=== PATIENT | female | born 1945 | race Hispanic/Latino ===

== ENCOUNTER 2018-07-02 10:57 | Observation (INO) | payer OTHER ==
[~2018-07-02] VITALS: Ht 154.9 cm; Wt 68.6 kg
[2018-07-02] MEDS ORDERED: NITROGLYCERIN 1GM/1 INCH PACKET TD ONE ×2 (11:15→11:56)
[2018-07-02 11:37] LABS: BASOPHILS % (AUTO) 0.7 % (0.0-5.0); EOSINOPHILS % (AUTO) 1.8 % (0.0-8.0); HEMATOCRIT 37.9 % (36-48); LYMPHOCYTES % (AUTO) 19.3 % (21.0-51.0); MEAN CORPUSCULAR HEMOGLOBIN 28.1 pg (27.0-33.0); MEAN CORPUSCULAR HGB CONC 32.4 g/dL (32.0-36.0); MEAN CORPUSCULAR VOLUME 86.8 fL (79-99); MONOCYTES % (AUTO) 5.2 % (3.0-13.0); NUCLEATED RED BLOOD CELLS 0.1 % (0.0-0.19); PLATELET COUNT (AUTO) 211 K/uL (130-400); RED BLOOD CELL COUNT(AUTO) 4.36 MIL/uL (4.00-5.50); RED CELL DISTRIBUTION WIDTH 15.3 % (11.0-15.5); WHITE BLOOD COUNT (AUTO) 7.9 K/uL (4.8-10.8)
[2018-07-02] MEDS ORDERED: NITROGLYCERIN 0.4 MG SL TAB SL ONE (11:45)
[2018-07-02 11:47] LABS: CREATININE 1.1 mg/dL (0.5-1.5); POTASSIUM 3.8 mmol/L (3.5-5.1)
[2018-07-02 11:52] LABS: ALBUMIN 3.6 g/dL (3.5-5.0); BILIRUBIN,TOTAL 0.8 mg/dL (0.2-1.0); TOTAL PROTEIN, SERUM 7.6 g/dL (6.0-8.3)
[2018-07-02 12:20] LABS: APPEARANCE,URINE Clear (CLEAR); BILIRUBIN,URINE Negative (NEGATIVE); COLOR,URINE Yellow (YELLOW); GLUCOSE, URINE (UA) Negative (NEGATIVE); KETONES,URINE Negative (NEGATIVE); LEUKOCYTE ESTERASE ,URINE Moderate (NEGATIVE); NITRATE,URINE Positive (NEGATIVE); OCCULT BLOOD,URINE Negative (NEGATIVE); PROTEIN,URINE POS 1+ (NEGATIVE); UROBILINOGEN,URINE 0.2 mg/dL (0.2-1.0)
[2018-07-02 12:27] LABS: BACTERIA,URINE Many /HPF (None Seen); RBC,URINE 0-1 /HPF (0-1); SQUAMOUS EPITHELIAL CELL,UR Rare /HPF (0-2)
[2018-07-02] MEDS ORDERED: CEFTRIAXONE SODIUM 1 GM ONE (12:54)
[2018-07-02] MEDS ORDERED: SODIUM CHLORIDE 0.9% 100 ML IV ONE (12:55)
[2018-07-02] MEDS ORDERED: ASPIRIN 81MG TAB.CHEW ONE (14:52)
[2018-07-02 18:02] VITALS: BP 175/72
[2018-07-02] MEDS ORDERED: SIMV40TA5 PO (18:08)
[2018-07-02] MEDS ORDERED: GLIP10TA9 PO (18:08)
[2018-07-02] MEDS ORDERED: ISOS60TA4 PO (18:08)
[2018-07-02] MEDS ORDERED: CILO100T PO (18:08)
[2018-07-02] MEDS ORDERED: CLOP75TA32 PO (18:08)
[2018-07-02] MEDS ORDERED: METO-409 PO (18:08)
[2018-07-02] MEDS ORDERED: AMLO2.5T3 PO (18:08)
[2018-07-02] MEDS ORDERED: LISI2.5T2 PO (18:08)
[2018-07-02] MEDS ORDERED: HYDR-4154 PO (18:08)
[2018-07-02] MEDS ORDERED: HUM10VIA6 SQ ×2 (18:13)
[2018-07-02 18:34] LABS: CREATINE KINASE, TOTAL 59 U/L (21-232); MYOGLOBIN 47 ng/mL (10-92); TROPONIN I < 0.04 ng/mL (0.00-0.06)
[2018-07-02 19:47] VITALS: BP 167/64
[2018-07-02] MEDS ORDERED: LACTULOSE 20 GM/30 ML UDCUP PO PRN (21:30)
[2018-07-02] MEDS ORDERED: LIDOCAINE HCL-MPF 1% 2ML VIAL IVP PRN ×2 (21:30)
[2018-07-02] MEDS ORDERED: DEXTROSE 50%-WATER 50 ML DISP.SYRIN IV PRN (21:30)
[2018-07-02] MEDS ORDERED: POTASSIUM CHLORIDE 10% ELIXIR 20 MEQ/15 ML UDCUP PO PRN (21:30)
[2018-07-02] MEDS ORDERED: POTASSIUM CHLORIDE 20 MEQ ERTAB PO PRN (21:30)
[2018-07-02] MEDS ORDERED: POTASSIUM CHLORIDE 20MEQ/100ML 100 ML IV PRN ×2 (21:30)
[2018-07-02] MEDS ORDERED: ACETAMINOPHEN 325 MG TAB PO PRN (21:30)
[2018-07-02] MEDS ORDERED: GLUCAGON 1MG KIT 1 MG ML IM PRN (21:30)
[2018-07-02 23:57] VITALS: BP 146/66
[2018-07-03 00:49] LABS: TROPONIN I 0.12 ng/mL (0.00-0.06)
[2018-07-03 03:48] VITALS: BP 176/75
[2018-07-03] MEDS: INSULIN HUMULIN R 100 UNIT/ML 3ML SQ SCH ×2 (06:57→11:52)
[2018-07-03 09:33] VITALS: BP 172/74
[2018-07-03] MEDS ORDERED: SIMVASTATIN 20 MG TABLET ONE (10:47)
[2018-07-03] MEDS ORDERED: ISOSORBIDE MONO 60 MG TAB.SR PO ONE (10:48)
[2018-07-03] MEDS ORDERED: METOPROLOL TARTRATE 50 MG TAB ONE (10:48)
[2018-07-03] MEDS ORDERED: AMLODIPINE BESYLATE 5 MG TAB PO ONE (10:48)
[2018-07-03] MEDS ORDERED: CLOPIDOGREL BISULFATE 75 MG TAB ONE (10:49)
[2018-07-03] MEDS ORDERED: LISINOPRIL 2.5 MG TABLET ONE (10:50)
[2018-07-03] MEDS ORDERED: CILOSTAZOL 100 MG TAB ONE (10:50)
[2018-07-03 12:09] VITALS: BP 183/78
[2018-07-03 12:16] VITALS: BP 132/62
[2018-07-03] MEDS ORDERED: CEFTRIAXONE SODIUM 1 GM IVP SCH (13:00)
[2018-07-03 15:37] VITALS: BP 134/44
[2018-07-03] MEDS ORDERED: CILOSTAZOL 100 MG TAB PO SCH (21:00)
[2018-07-03] MEDS ORDERED: HYDRALAZINE HCL 25 MG TABLET PO SCH (21:00)
[2018-07-03] MEDS ORDERED: GLIPIZIDE 5 MG TABLET PO SCH (21:00)
[2018-07-04] MEDS ORDERED: CLOPIDOGREL BISULFATE 75 MG TAB PO SCH (09:00)
[2018-07-04] MEDS ORDERED: LISINOPRIL 2.5 MG TABLET PO SCH (09:00)
[2018-07-04] MEDS ORDERED: SIMVASTATIN 20 MG TABLET PO SCH (09:00)
[2018-07-04] MEDS ORDERED: ISOSORBIDE MONO 60 MG TAB.SR PO SCH (09:00)
[2018-07-04] MEDS ORDERED: AMLODIPINE BESYLATE 2.5 MG TAB PO SCH (09:00)
[2018-07-04] MEDS ORDERED: METOPROLOL TARTRATE 50 MG TAB PO SCH (09:00)
== END 2018-07-03 17:35 | disposition home or self-care (01) ==
LOC: EDH 10:57 → EDHIP 13:40 → 3CH 17:16
PROVIDERS: ADMIT Internal Medicine; ATTEND Internal Medicine
DX: N39.0 Urinary tract infection, site not specified (principal); E78.5 Hyperlipidemia, unspecified; I11.0 Hypertensive heart disease with heart failure; I50.9 Heart failure, unspecified; I16.0 Hypertensive urgency; I25.10 Atherosclerotic heart disease of native coronary artery without angina pectoris; I25.5 Ischemic cardiomyopathy; I35.0 Nonrheumatic aortic (valve) stenosis; Z87.440 Personal history of urinary (tract) infections; Z95.1 Presence of aortocoronary bypass graft; Z95.5 Presence of coronary angioplasty implant and graft; Z90.49 Acquired absence of other specified parts of digestive tract
CPT/HCPCS: 36415 ×2; 71045; 80053; 81001; 82550 ×2; 82948 ×5; 83874 ×2; 84484 ×3; 85025; 87077; 87088; 87186; 93005; 96372; 96374; 99284; A4218; A4510; A4600; G0378 ×28; J0696 ×2; J1815

== ENCOUNTER → 2018-08-26 | Outpatient (CLI) | payer OTHER ==
[~2018-08-26] MED LIST: AMLO2.5T4 PO; CILO100T PO; CLOP75TA32 PO; GLIP10TA9 PO; HUM10VIA6 SQ; HYDR-4154 PO; ISOS60TA4 PO; LISI2.5T2 PO; METO-409 PO; SIMV40TA5 PO
== END | disposition home or self-care (01) ==
LOC: SHCH 12:58
PROVIDERS: ATTEND Internal Medicine Cardiovascular Disease
DX: I11.9 Hypertensive heart disease without heart failure (principal); I25.810 Atherosclerosis of coronary artery bypass graft(s) without angina pectoris
CPT/HCPCS: 93306

== ENCOUNTER → 2018-08-31 | Outpatient (CLI) | payer OTHER | END | disposition home or self-care (01) | LOC: SHCH 16:03 | PROVIDERS: ATTEND Internal Medicine Cardiovascular Disease | DX: I65.23 Occlusion and stenosis of bilateral carotid arteries (principal) | CPT/HCPCS: 93880 ==

== ENCOUNTER 2018-11-02 07:44 | Observation (INO) | payer OTHER ==
[2018-10-29 14:11] LABS: BASOPHILS % (AUTO) 0.6 % (0.0-5.0); EOSINOPHILS % (AUTO) 2.3 % (0.0-8.0); HEMATOCRIT 36.8 % (36-48); LYMPHOCYTES % (AUTO) 21.6 % (21.0-51.0); MEAN CORPUSCULAR HEMOGLOBIN 29.7 pg (27.0-33.0); MEAN CORPUSCULAR HGB CONC 33.3 g/dL (32.0-36.0); MEAN CORPUSCULAR VOLUME 89.2 fL (79-99); MONOCYTES % (AUTO) 5.2 % (3.0-13.0); NEUTROPHILS % (AUTO) 70.3 % (40.0-77.0); NUCLEATED RED BLOOD CELLS 0.1 % (0.0-0.19); PLATELET COUNT (AUTO) 221 K/uL (130-400); RED BLOOD CELL COUNT(AUTO) 4.13 MIL/uL (4.00-5.50); RED CELL DISTRIBUTION WIDTH 15.5 % (11.0-15.5); WHITE BLOOD COUNT (AUTO) 7.8 K/uL (4.8-10.8)
[2018-10-29 14:12] LABS: APPEARANCE,URINE Clear (CLEAR); BILIRUBIN,URINE Negative (NEGATIVE); COLOR,URINE Yellow (YELLOW); GLUCOSE, URINE (UA) Negative (NEGATIVE); KETONES,URINE Negative (NEGATIVE); LEUKOCYTE ESTERASE ,URINE Small (NEGATIVE); NITRATE,URINE Negative (NEGATIVE); OCCULT BLOOD,URINE Negative (NEGATIVE); PROTEIN,URINE Negative (NEGATIVE)
[2018-10-29 14:17] VITALS: BP 162/68
[2018-10-29 14:18] LABS: POTASSIUM 4.3 mmol/L (3.5-5.1)
[2018-10-29 14:22] LABS: RBC,URINE 0-1 /HPF (0-1)
[2018-10-29 14:23] LABS: BACTERIA,URINE Many /HPF (None Seen); INR 0.88 (0.85-1.15); PARTIAL THROMBOPLASTIN TIME 31.5 SEC (26.3-35.5); PROTHROMBIN TIME 9.3 SEC (9.6-11.6)
--- NOTE | 2018-10-29 15:01 | NUR ---
CALLED LEANN CARDOSO OF [facility] THAT PT IS ALLERGIC TO IODINE. PATIENT WAS INSTRUCTED TO PLEASE CALL BACK TO FIND OUT IF NEW ORDERS WERE RECEIVED. PER PATIENT SHE WANTS TO GO EAT. PER LEANN CARDOSO PRE MEDICATE PATIENT PRIOR TO PROCEDURE.
--- NOTE | 2018-11-01 13:41 | NUR ---
LEANN CARDOSO, NOTIFIED OF ABNORMAL UA RESULTS NO NEW ORDERS RECEIVED.
[~2018-11-02] VITALS: Ht 154.9 cm; Wt 69.5 kg
[2018-11-02] VITALS (15 sets, daily range): BP systolic 101–214; BP diastolic 44–74
[~2018-11-02 07:44] MED LIST changes: -AMLO2.5T4 PO; +DiphenhydrAMINE HCL 50 MG/ML VIAL IVP SCH; +HUM100IN SQ; -HUM10VIA6 SQ; +METHYLPREDNISOLONE SOD SUCC 125MG/2ML VIAL IVP SCH; +SODIUM CHLORIDE 0.9% 500ML 500 ML IV SCH
[2018-11-02] MEDS ORDERED: SODIUM CHLORIDE 0.9% 1000ML 1,000 ML IV ONE (09:02)
[2018-11-02] MEDS ORDERED: CLONIDINE HCL 0.1 MG TABLET ONE (09:05)
[2018-11-02] MEDS ORDERED: HYDRALAZINE HCL 20 MG/ML VIAL ONE (09:05)
[2018-11-02] MEDS ORDERED: DiphenhydrAMINE HCL 50 MG/ML VIAL ONE (09:06)
[2018-11-02] MEDS ORDERED: ALPRAZOLAM 0.5 MG TABLET ONE (09:06)
[2018-11-02] MEDS ORDERED: METHYLPREDNISOLONE SOD SUCC 125MG/2ML VIAL ONE (09:06)
[2018-11-02] MEDS ORDERED: HEPARIN SODIUM 1000UNIT/ML 10ML VIAL ONE (09:21)
[2018-11-02] MEDS ORDERED: LIDOCAINE HCL 2% 20ML ONE (09:21)
[2018-11-02] MEDS ORDERED: NITROGLYCERIN 5 MG/ML 10 ML VIAL IV ONE (09:21)
[2018-11-02] MEDS ORDERED: SODIUM BICARB 50MEQ 50ML VIAL ONE (09:21)
[2018-11-02] MEDS ORDERED: IOHEXOL 350 MG/ML 100ML INFUS..BTL IV ONE (09:21)
[2018-11-02] MEDS ORDERED: IOHEXOL-350 50ML VIAL IV ONE (09:21)
[2018-11-02] MEDS ORDERED: DiphenhydrAMINE HCL 50 MG/ML VIAL IVP SCH (09:30)
[2018-11-02] MEDS ORDERED: FAMOTIDINE 20MG TAB 20 MG TAB PO SCH (09:30)
[2018-11-02] MEDS ORDERED: ALPRAZOLAM 0.5 MG TABLET PO SCH (09:30)
[2018-11-02] MEDS ORDERED: METHYLPREDNISOLONE SOD SUCC 125MG/2ML VIAL IVP SCH (09:30)
[2018-11-02] MEDS ORDERED: HYDRALAZINE HCL 20 MG/ML VIAL IV SCH (09:30)
[2018-11-02] MEDS ORDERED: FAMOTIDINE/PF 20 MG/2 ML VIAL IV ONE (10:30)
[2018-11-02] MEDS ORDERED: ASPIRIN 325MG EC TAB 325 MG TABLET.DR PO ONE (11:34)
[2018-11-02] MEDS: SODIUM CHLORIDE 0.9% 1000ML 1,000 ML IV SCH ×2 (11:36→20:01)
[2018-11-02] MEDS ORDERED: ACETAMINOPHEN 325 MG TAB PO PRN (11:45)
--- NOTE | 2018-11-02 12:15 | NUR ---
POST PROCEDURE RECEIVED PT FROM [facility], IN FLAT POSITION, A&OX3, CALM COOPERATIVE AND DOES NOT APPEAR TO BE IN ANY DISTRESS NOR ANY NEURO DEFICITS PRESENT. RT GROIN SOFT NONTENDER WITH NO OOZING OR HEMATOMA PRESENT. DP/PT PULSES PALPABLE. PT ON BEDREST UNTIL 1800. CALL LIGHT WITHIN REACH, FAMILY AT BEDSIDE.
[2018-11-02] MEDS ORDERED: CLOPIDOGREL BISULFATE 75 MG TAB PO SCH ×2 (13:30→21:00)
--- NOTE | 2018-11-02 15:45 | NUR ---
DR SIMMS OFFICE NOTIFIED SPOKE TO BRIAN ABOUT PATIENT ARRIVAL.
[2018-11-02] MEDS: LISINOPRIL 2.5 MG TABLET PO SCH (17:53)
[2018-11-02] MEDS: GLIPIZIDE 5 MG TABLET PO SCH (17:53)
--- NOTE | 2018-11-02 18:15 | NUR ---
BEDREST COMPLETE RT GROIN SOFT NONTENDER WITH NO OOZING OR HEMATOMA PRESENT. DP/PT PULSES PALPABLE, PT REPOSITIONED TO BYNUM'S POSITION, CALL LIGHT WITHIN REACH, FAMILY AT BEDSIDE.
[2018-11-02] MEDS ORDERED: INSULIN HUMULIN 70/30 100 UNIT/ML 3ML SQ SCH (21:00)
[2018-11-02] MEDS ORDERED: SIMVASTATIN 20 MG TABLET PO SCH (21:00)
[2018-11-02] MEDS: HYDRALAZINE HCL 25 MG TABLET PO SCH (21:11)
[2018-11-02] MEDS: METOPROLOL TARTRATE 50 MG TAB PO SCH (21:12)
[2018-11-02] MEDS: CILOSTAZOL 100 MG TAB PO SCH (21:12)
[2018-11-03 04:00] VITALS: BP 114/53
[2018-11-03 04:11] LABS: HEMATOCRIT 32.4 % (36-48); MEAN CORPUSCULAR HEMOGLOBIN 29.7 pg (27.0-33.0); MEAN CORPUSCULAR HGB CONC 33.5 g/dL (32.0-36.0); MEAN CORPUSCULAR VOLUME 88.5 fL (79-99); PLATELET COUNT (AUTO) 199 K/uL (130-400); RED BLOOD CELL COUNT(AUTO) 3.66 MIL/uL (4.00-5.50); RED CELL DISTRIBUTION WIDTH 15.1 % (11.0-15.5)
[2018-11-03 04:23] LABS: CREATININE 1.2 mg/dL (0.5-1.5)
[2018-11-03] MEDS: SODIUM CHLORIDE 0.9% 1000ML 1,000 ML IV SCH (05:13)
[2018-11-03 07:00] VITALS: BP 117/48
[2018-11-03] MEDS ORDERED: INSULIN HUMULIN 70/30 100 UNIT/ML 3ML SQ SCH (09:00)
[2018-11-03] MEDS ORDERED: ASPIRIN 81 MG EC TAB PO SCH (09:00)
[2018-11-03] MEDS ORDERED: ISOSORBIDE MONO 60 MG TAB.SR PO SCH (09:00)
[2018-11-03] MEDS: GLIPIZIDE 5 MG TABLET PO SCH ×2 (09:26→16:16)
[2018-11-03] MEDS: CILOSTAZOL 100 MG TAB PO SCH (09:26)
[2018-11-03] MEDS: HYDRALAZINE HCL 25 MG TABLET PO SCH (09:27)
--- NOTE | 2018-11-03 09:34 | NUR ---
Pt states she will take metoprolol and lisinopril in the evening as she usually does.
[2018-11-03 11:00] VITALS: BP 133/55
--- NOTE | 2018-11-03 11:30 | NUR ---
Dr. Huston notified patient DC from Cardiac standpoint. States he will be by later today to see pt.
[2018-11-03 16:00] VITALS: BP 183/71
--- NOTE | 2018-11-03 16:00 | NUR ---
Patient c/o of shivering, BP 183/71. Dr. Huston notified of BP findings and instructed to take ordered lisinopril and metoprolol.
[2018-11-03] MEDS: METOPROLOL TARTRATE 50 MG TAB PO SCH (16:16)
[2018-11-03] MEDS: LISINOPRIL 2.5 MG TABLET PO SCH (16:17)
[2018-11-03 17:00] VITALS: BP 137/58
[2018-11-03 20:04] VITALS: BP 136/45
--- NOTE | 2018-11-03 20:52 | NUR ---
PATIENT IS BEING DISCHARGED AT THIS TIME. DISCHARGE PAPERWORK AND INSTRUCTIONS GIVEN. IV DISCONTINUED, HEMOSTASIS ACHIEVED. DRESSING APPLIED. TELEPACK REMOVED. PATIENT TAKEN OUT THROUGH ER VIA WHEELCHAIR BY [facility] AND FAMILY MEMBERS
== END 2018-11-03 21:00 | disposition home or self-care (01) ==
LOC: DAH 07:44 → DAHIP 07:45 → 2DH 12:16
PROVIDERS: ADMIT Internal Medicine; ATTEND Internal Medicine
DX: I25.119 Atherosclerotic heart disease of native coronary artery with unspecified angina pectoris (principal); I25.810 Atherosclerosis of coronary artery bypass graft(s) without angina pectoris; I65.01 Occlusion and stenosis of right vertebral artery; I70.1 Atherosclerosis of renal artery; I10 Essential (primary) hypertension; E11.9 Type 2 diabetes mellitus without complications; Z95.5 Presence of coronary angioplasty implant and graft
CPT/HCPCS: 36226; 36252; 36415 ×3; 71045; 80048 ×2; 81001; 82948 ×6; 85025; 85027; 85347 ×2; 85610; 85730; 93005; 93459; 96372 ×2; 96374; 96375; A4606; C1760; C1769 ×2; C1874; C1887; C1894; C9604; G0378 ×37; J0360; J1200; J1644 ×2; J1815 ×2; J2930; J3490 ×4; J7030 ×3; Q9965; Q9967 ×2; 75716

== ENCOUNTER 2019-04-07 16:32 | Inpatient (IN) | payer OTHER ==
[~2019-04-07] VITALS: Ht 154.9 cm; Wt 78.9 kg
[~2019-04-07 16:32] MED LIST changes: -DiphenhydrAMINE HCL 50 MG/ML VIAL IVP SCH; -METHYLPREDNISOLONE SOD SUCC 125MG/2ML VIAL IVP SCH; -SODIUM CHLORIDE 0.9% 500ML 500 ML IV SCH
[2019-04-07 17:36] LABS: BASOPHILS % (AUTO) 0.2 % (0.0-5.0); EOSINOPHILS % (AUTO) 0.1 % (0.0-8.0); HEMATOCRIT 34.3 % (36-48); LYMPHOCYTES % (AUTO) 3.3 % (21.0-51.0); MEAN CORPUSCULAR HEMOGLOBIN 29.6 pg (27.0-33.0); MEAN CORPUSCULAR HGB CONC 34.2 g/dL (32.0-36.0); MEAN CORPUSCULAR VOLUME 86.7 fL (79-99); NEUTROPHILS % (AUTO) 92.4 % (40.0-77.0); PLATELET COUNT (AUTO) 281 K/uL (130-400); RED BLOOD CELL COUNT(AUTO) 3.95 MIL/uL (4.00-5.50); RED CELL DISTRIBUTION WIDTH 14.5 % (11.0-15.5); WHITE BLOOD COUNT (AUTO) 21.1 K/uL (4.8-10.8)
[2019-04-07] MEDS ORDERED: ONDANSETRON HCL 4 MG/2 ML VIAL ONE (17:38)
[2019-04-07] MEDS ORDERED: SODIUM CHLORIDE 0.9% 1000ML 1,000 ML IV ONE (17:38)
[2019-04-07] MEDS ORDERED: DiphenhydrAMINE HCL 50 MG/ML VIAL ONE (17:46)
[2019-04-07 17:48] LABS: CARBON DIOXIDE 25 mmol/L (21-32); CHLORIDE 101 mmol/L (101-111); CREATININE 1.3 mg/dL (0.5-1.5); GLOMERULAR FILTR. RATE CALC 43 mL/min (>60); GLUCOSE,RANDOM 188 mg/dL (70-105); POTASSIUM 3.1 mmol/L (3.5-5.1); SODIUM SERUM 137 mmol/L (136-145); UREA NITROGEN, BLOOD 13 mg/dL (7-18)
[2019-04-07 17:52] LABS: ALANINE AMINOTRANSFERASE 14 U/L (12-78); AMYLASE 19 U/L (25-115); ASPARTATE AMINOTRANSFERASE 12 U/L (10-37); BILIRUBIN,TOTAL 0.9 mg/dL (0.2-1.0); TOTAL PROTEIN, SERUM 6.9 g/dL (6.0-8.3)
[2019-04-07 17:54] LABS: LIPASE < 50 U/L (114-286)
[2019-04-07] MEDS ORDERED: IOHEXOL-350 75 ML VIAL IV ONE (18:09)
[2019-04-07] MEDS ORDERED: METRONIDAZOLE 500MG/100ML BAG 100 ML ONE (19:47)
[2019-04-07] MEDS ORDERED: HYDROMORPHONE 1 MG/1 ML AMP ONE (19:48)
[2019-04-07] MEDS: LEVOFLOXACIN 750 MG/D5W 150 ML 150 ML IV SCH (20:00)
[2019-04-07] MEDS ORDERED: LEVOFLOXACIN 750 MG/D5W 150 ML 150 ML ONE (21:07)
[2019-04-07 22:27] VITALS: BP 132/57
--- NOTE | 2019-04-08 00:37 | NUR ---
Paged Dr. Huston regarding patient complaining of stomach pain. No Prn meds ordered. Pending call back
--- NOTE | 2019-04-08 01:26 | NUR ---
repaged Dr. Huston regarding patient have stomach pain. Still no answer. Pending call back
[2019-04-08 04:00] VITALS: BP 116/50
[2019-04-08] MEDS: METRONIDAZOLE 500MG/100ML BAG 100 ML IVPB SCH ×3 (05:27→19:52)
[2019-04-08 08:11] VITALS: BP 136/61
[2019-04-08] MEDS: PANTOPRAZOLE SODIUM 40 MG TABLET.DR PO SCH (09:53)
[2019-04-08 13:10] VITALS: BP 115/57
[2019-04-08 16:00] VITALS: BP 136/50
[2019-04-08] MEDS ORDERED: POTASSIUM CHLORIDE 20MEQ/100ML 100 ML IV PRN (17:45)
[2019-04-08] MEDS ORDERED: POTASSIUM CHLORIDE 10% ELIXIR 20 MEQ/15 ML UDCUP PO PRN (17:45)
[2019-04-08] MEDS ORDERED: MAGNESIUM 2GM PREMIX 50ML 50 ML IV PRN (17:45)
[2019-04-08] MEDS: SODIUM CHLORIDE 0.9% 1000ML 1,000 ML IV SCH (17:45)
[2019-04-08] MEDS ORDERED: LIDOCAINE HCL-MPF 1% 2ML VIAL IV PRN (17:45)
--- NOTE | 2019-04-08 18:40 | NUR ---
cm note met with patient and states resides at home with spouse, independent with adls and ambulation .no dme. no services, states [place] no dc needs. Addendum: 04/08/19 at 1842 by OWEN CASIANO CM Amended: Links added.
[2019-04-08] MEDS: FAMOTIDINE/PF 20 MG/2 ML VIAL IV SCH (19:52)
[2019-04-08] MEDS: LEVOFLOXACIN 750 MG/D5W 150 ML 150 ML IV SCH (19:52)
[2019-04-08 20:00] VITALS: BP 145/61
[2019-04-08] MEDS ORDERED: DIPHENOXYLATE HCL/ATROPINE 2.5/0.025 MG TAB PO ONE (21:00)
[2019-04-08] MEDS: INSULIN LISPRO 100 UNIT/ML 3ML SQ SCH (21:28)
[2019-04-09] VITALS: BP 120/56
[2019-04-09] MEDS: POTASSIUM CHLORIDE 20 MEQ ERTAB PO PRN ×2 (01:27→03:12)
[2019-04-09] MEDS: METRONIDAZOLE 500MG/100ML BAG 100 ML IVPB SCH ×3 (03:11→22:26)
[2019-04-09 04:00] VITALS: BP 149/65
[2019-04-09 04:56] LABS: HEMATOCRIT 32.3 % (36-48); MEAN CORPUSCULAR HEMOGLOBIN 29.6 pg (27.0-33.0); MEAN CORPUSCULAR VOLUME 87.1 fL (79-99); PLATELET COUNT (AUTO) 269 K/uL (130-400); RED BLOOD CELL COUNT(AUTO) 3.71 MIL/uL (4.00-5.50); RED CELL DISTRIBUTION WIDTH 14.7 % (11.0-15.5); WHITE BLOOD COUNT (AUTO) 15.6 K/uL (4.8-10.8)
[2019-04-09 05:02] LABS: BAND NEUTROPHILS % (MANUAL) 7 % (0-2); LYMPHOCYTES % (MANUAL) 9 % (22-44); MAN.DIFF COMMENT-IMPRESSION MANUAL DIFFERENTIAL; MONOCYTES % (MANUAL) 1 % (2-9); PLATELET MORPHOLOGY COMMENT ADEQUATE; SEGMENTED NEUTROPHILS % 83 % (40-70)
[2019-04-09 05:06] LABS: ALBUMIN 2.1 g/dL (3.5-5.0); BILIRUBIN,TOTAL 0.4 mg/dL (0.2-1.0); CREATININE 1.4 mg/dL (0.5-1.5); MAGNESIUM 1.5 mg/dL (1.80-2.40); TOTAL PROTEIN, SERUM 5.8 g/dL (6.0-8.3)
[2019-04-09] MEDS: INSULIN LISPRO 100 UNIT/ML 3ML SQ SCH ×4 (06:14→22:29)
[2019-04-09 07:30] VITALS: BP 135/58
[2019-04-09] MEDS: PANTOPRAZOLE SODIUM 40 MG TABLET.DR PO SCH (09:00)
[2019-04-09] MEDS: HYDRALAZINE HCL 25 MG TABLET PO SCH ×2 (09:15→22:27)
[2019-04-09] MEDS: METOPROLOL TARTRATE 50 MG TAB PO SCH ×2 (09:15→22:27)
[2019-04-09] MEDS: GLIPIZIDE 5 MG TABLET PO SCH ×2 (09:15→22:28)
[2019-04-09] MEDS: LISINOPRIL 2.5 MG TABLET PO SCH (09:15)
[2019-04-09] MEDS: INSULIN HUMULIN 70/30 100 UNIT/ML 3ML SQ SCH ×2 (09:30→22:31)
[2019-04-09 11:00] VITALS: BP 129/61
[2019-04-09] MEDS: FAMOTIDINE/PF 20 MG/2 ML VIAL IV SCH ×2 (11:48→22:27)
[2019-04-09] MEDS: SODIUM CHLORIDE 0.9% 1000ML 1,000 ML IV SCH (11:50)
[2019-04-09 16:00] VITALS: BP 126/52
[2019-04-09 20:00] VITALS: BP 121/54
[2019-04-09] MEDS: SIMVASTATIN 20 MG TABLET PO SCH (21:00)
[2019-04-09] MEDS: LEVOFLOXACIN 750 MG/D5W 150 ML 150 ML IV SCH (22:26)
[2019-04-09] MEDS: CLOPIDOGREL BISULFATE 75 MG TAB PO SCH (22:27)
[2019-04-09] MEDS: CILOSTAZOL 100 MG TAB PO SCH (22:28)
[2019-04-10] VITALS: BP 119/47
[2019-04-10] MEDS: SODIUM CHLORIDE 0.9% 1000ML 1,000 ML IV SCH ×2 (02:13→20:43)
[2019-04-10] MEDS: METRONIDAZOLE 500MG/100ML BAG 100 ML IVPB SCH ×3 (03:54→20:43)
[2019-04-10 04:00] VITALS: BP 131/55
[2019-04-10] MEDS: INSULIN LISPRO 100 UNIT/ML 3ML SQ SCH ×4 (06:29→23:04)
[2019-04-10 06:58] LABS: BASOPHILS % (AUTO) 0.6 % (0.0-5.0); EOSINOPHILS % (AUTO) 1.1 % (0.0-8.0); HEMATOCRIT 32.1 % (36-48); LYMPHOCYTES % (AUTO) 6.5 % (21.0-51.0); MEAN CORPUSCULAR HEMOGLOBIN 29.3 pg (27.0-33.0); MEAN CORPUSCULAR HGB CONC 33.4 g/dL (32.0-36.0); MEAN CORPUSCULAR VOLUME 87.8 fL (79-99); MONOCYTES % (AUTO) 5.8 % (3.0-13.0); PLATELET COUNT (AUTO) 249 K/uL (130-400); RED BLOOD CELL COUNT(AUTO) 3.66 MIL/uL (4.00-5.50); RED CELL DISTRIBUTION WIDTH 14.8 % (11.0-15.5); WHITE BLOOD COUNT (AUTO) 12.7 K/uL (4.8-10.8)
[2019-04-10 07:00] VITALS: BP 128/67
[2019-04-10 07:15] LABS: ALBUMIN 1.9 g/dL (3.5-5.0); BILIRUBIN,TOTAL 0.3 mg/dL (0.2-1.0); CREATININE 1.1 mg/dL (0.5-1.5); MAGNESIUM 2.1 mg/dL (1.80-2.40); POTASSIUM 4.1 mmol/L (3.5-5.1)
[2019-04-10] MEDS: CILOSTAZOL 100 MG TAB PO SCH ×2 (08:48→22:55)
[2019-04-10] MEDS: METOPROLOL TARTRATE 50 MG TAB PO SCH ×2 (08:48→23:07)
[2019-04-10] MEDS: PANTOPRAZOLE SODIUM 40 MG TABLET.DR PO SCH (08:49)
[2019-04-10] MEDS: ISOSORBIDE MONO 60 MG TAB.SR PO SCH (08:49)
[2019-04-10] MEDS: HYDRALAZINE HCL 25 MG TABLET PO SCH ×2 (08:49→22:55)
[2019-04-10] MEDS: LISINOPRIL 2.5 MG TABLET PO SCH (08:49)
[2019-04-10] MEDS: GLIPIZIDE 5 MG TABLET PO SCH ×2 (08:50→22:56)
[2019-04-10] MEDS ORDERED: ONDANSETRON HCL 4 MG/2 ML VIAL IVP PRN (09:00)
[2019-04-10] MEDS: FAMOTIDINE/PF 20 MG/2 ML VIAL IV SCH ×2 (09:00→22:55)
[2019-04-10] MEDS: INSULIN HUMULIN 70/30 100 UNIT/ML 3ML SQ SCH ×2 (09:20→23:05)
[2019-04-10 11:00] VITALS: BP 106/51
[2019-04-10 16:00] VITALS: BP 116/43
--- NOTE | 2019-04-10 19:00 | NUR ---
DR. ERWIN HERE FOR THE G I CONSULTATION SPOKE WITH PT . OF PLAN OF CARE FOR A EGD .
[2019-04-10 20:00] VITALS: BP 138/52
[2019-04-10] MEDS: LEVOFLOXACIN 750 MG/D5W 150 ML 150 ML IV SCH (20:43)
[2019-04-10] MEDS: LOPERAMIDE HCL 2 MG CAP PO SCH (21:00)
[2019-04-10] MEDS: CLOPIDOGREL BISULFATE 75 MG TAB PO SCH (22:55)
[2019-04-10] MEDS: SIMVASTATIN 20 MG TABLET PO SCH (23:07)
[2019-04-11] VITALS (19 sets, daily range): BP systolic 73–173; BP diastolic 36–73
[2019-04-11] MEDS: METRONIDAZOLE 500MG/100ML BAG 100 ML IVPB SCH ×2 (04:23→12:53)
[2019-04-11] MEDS: INSULIN LISPRO 100 UNIT/ML 3ML SQ SCH ×4 (06:33→20:44)
[2019-04-11] MEDS: ISOSORBIDE MONO 60 MG TAB.SR PO SCH (09:00)
[2019-04-11] MEDS: GLIPIZIDE 5 MG TABLET PO SCH ×2 (09:00→20:56)
[2019-04-11] MEDS: PANTOPRAZOLE SODIUM 40 MG TABLET.DR PO SCH (09:00)
[2019-04-11] MEDS: CILOSTAZOL 100 MG TAB PO SCH ×2 (09:00→20:52)
[2019-04-11] MEDS: INSULIN HUMULIN 70/30 100 UNIT/ML 3ML SQ SCH ×2 (09:00→20:55)
[2019-04-11] MEDS: LOPERAMIDE HCL 2 MG CAP PO SCH ×3 (09:00→20:57)
[2019-04-11] MEDS: LISINOPRIL 2.5 MG TABLET PO SCH (10:04)
[2019-04-11] MEDS: METOPROLOL TARTRATE 50 MG TAB PO SCH ×2 (10:04→20:53)
[2019-04-11] MEDS: HYDRALAZINE HCL 25 MG TABLET PO SCH ×2 (10:04→20:52)
[2019-04-11] MEDS: FAMOTIDINE/PF 20 MG/2 ML VIAL IV SCH (10:41)
[2019-04-11] MEDS: SODIUM CHLORIDE 0.9% 1000ML 1,000 ML IV SCH ×2 (12:25→20:54)
--- NOTE | 2019-04-11 13:20 | NUR ---
TO G I. LAB VIA BED WITH STAFF AT THE BEDSIDE. FOR EGD PROCEDURE.
--- NOTE | 2019-04-11 13:41 | NUR ---
LAB STAFF ARUN . CALLED AND REPORT PT HAS C- DIFF IN THE STOOL .
[2019-04-11] MEDS ORDERED: PROPOFOL 10 MG/ML 20ML VIAL IV ONE (14:21)
--- NOTE | 2019-04-11 14:54 | NUR ---
NELIDA Gordon R.N WAS CALLED FOR THE REPORT OF THE C- DIFF OF THE STOOL PLACED PT ON THE CONTACT ISOLATION FOR C- DIFF . AND BLEACH . WIPES INSIDE THE ROOM..
--- NOTE | 2019-04-11 15:00 | NUR ---
CALLED DR. SIMMS AND REPORT THE C-DIFF , WITH CHANGES TO PO ANTIBOTIC AND DC IV FLAGYL
--- NOTE | 2019-04-11 15:10 | NUR ---
PT BACK FROM THE GI LAB. AAO X 3 REVIEW PLAN OF CARE .AND ORDERS FROM GI / PT DENIES ANY ABD PAIN. EDUCATION REGARDING THE C - DIFF . REPORT TO PT AND FAMILY. AND POSTOP V/S STARTED . PER . PROCEDURE MONITOR . BED LEVEL DOWN AND CALL LIGHT IN REACH..
[2019-04-11] MEDS ORDERED: COMPOUND PO MISCELLANEOUS 1 EACH MISC MISC PRN (16:00)
[2019-04-11] MEDS ORDERED: PHARMACY COMMUNICATION MISC SCH (17:00)
[2019-04-11] MEDS: VANCOMYCIN 250MG/5ML ORAL SOLUTION 40ML PO SCH ×4 (19:08→20:31)
[2019-04-11] MEDS: LEVOFLOXACIN 750 MG/D5W 150 ML 150 ML IV SCH (20:51)
[2019-04-11] MEDS: SIMVASTATIN 20 MG TABLET PO SCH (20:52)
[2019-04-11] MEDS: CLOPIDOGREL BISULFATE 75 MG TAB PO SCH (20:52)
[2019-04-12 03:55] VITALS: BP 114/59
[2019-04-12] MEDS: VANCOMYCIN 250MG/5ML ORAL SOLUTION 40ML PO SCH ×6 (05:07→16:47)
[2019-04-12] MEDS: INSULIN LISPRO 100 UNIT/ML 3ML SQ SCH ×2 (06:19→11:30)
[2019-04-12 07:00] VITALS: BP 117/56
--- NOTE | 2019-04-12 08:00 | NUR ---
PT OOB TO CHAIR ,STATED THAT SHE FEEL BETTER . DENIES ANY ABD PAIN OR DIARRHEA. CALL LIGHT IN REACH AND TOLERATED DIET WELL,
[2019-04-12] MEDS ORDERED: PANTOPRAZOLE SODIUM 40 MG TABLET.DR PO SCH (09:00)
[2019-04-12] MEDS: LISINOPRIL 2.5 MG TABLET PO SCH (09:02)
[2019-04-12] MEDS: ISOSORBIDE MONO 60 MG TAB.SR PO SCH (09:02)
[2019-04-12] MEDS: GLIPIZIDE 5 MG TABLET PO SCH (09:02)
[2019-04-12] MEDS: HYDRALAZINE HCL 25 MG TABLET PO SCH (09:02)
[2019-04-12] MEDS: CILOSTAZOL 100 MG TAB PO SCH (09:02)
[2019-04-12] MEDS: LOPERAMIDE HCL 2 MG CAP PO SCH ×2 (09:03→14:14)
[2019-04-12] MEDS: METOPROLOL TARTRATE 50 MG TAB PO SCH (09:03)
[2019-04-12 11:00] VITALS: BP 113/56
[2019-04-12] MEDS: INSULIN HUMULIN 70/30 100 UNIT/ML 3ML SQ SCH (14:16)
[2019-04-12 16:00] VITALS: BP 88/45
--- NOTE | 2019-04-12 18:00 | NUR ---
DR. SIMMS HERE AND REVIEW DISCHARGE SUMMARY AND CARE . AND PT TO COMPLETED THE ANTIBOTIC PER PRESCRIPTION . AND TO SEE HIM IN HIS OFFICE THIS THUR,. ORDERS TO FOLLOW
--- NOTE | 2019-04-12 19:10 | NUR ---
DISCHARGE SUMMARY REVIEW ,WITH PT .AND NEW PRECRIPTIONS AND OFFICE TO BE CALL FOR A APPT , THIS COMING THUR, . SL TO HER RFA,WAS DC, , NOTED ON HEMATOMA ,SOME MILD SWELLING NOTED ,BUT STATED THAT IT DOES NOT HURT. CMS NOTED WITH NOTED WITH S SHERINE RADIAL PULSES AND CMS PRESENT TO HER. FINGERS TO HER RT ARM. DENIES ANY ABD PAIN. AND TOLERATE DIET .WELL. TO ALSO TO CALL DR. ERWIN OFFICE, RECOMMANDATION PER GI CONSULTATION TO GET THE PROTONIX 40 MG PO X 8 WEEKS,
== END 2019-04-12 18:59 | disposition home or self-care (01) | DRG 872 ==
LOC: EDH 16:32 → INTOOBSV 19:30 → EDHIP 19:30 → OBSVTOIN 19:30 → 3CH 04-08 00:02
PROVIDERS: ADMIT Internal Medicine; ATTEND Internal Medicine
PROC: 0DB98ZX Excision of Duodenum, Via Natural or Artificial Opening Endoscopic, Diagnostic (ICD-10-PCS; principal; 2019-04-11)
PROC: 0DB68ZX Excision of Stomach, Via Natural or Artificial Opening Endoscopic, Diagnostic (ICD-10-PCS; 2019-04-11)
PROC: 0DB58ZX Excision of Esophagus, Via Natural or Artificial Opening Endoscopic, Diagnostic (ICD-10-PCS; 2019-04-11)
DX: A41.9 Sepsis, unspecified organism (principal); A04.72 Enterocolitis due to Clostridium difficile, not specified as recurrent; N28.9 Disorder of kidney and ureter, unspecified; E11.51 Type 2 diabetes mellitus with diabetic peripheral angiopathy without gangrene; E78.5 Hyperlipidemia, unspecified; E87.6 Hypokalemia; G89.29 Other chronic pain; I10 Essential (primary) hypertension; I25.10 Atherosclerotic heart disease of native coronary artery without angina pectoris; I35.0 Nonrheumatic aortic (valve) stenosis; K21.0 Gastro-esophageal reflux disease with esophagitis; K44.9 Diaphragmatic hernia without obstruction or gangrene; D50.9 Iron deficiency anemia, unspecified; K29.00 Acute gastritis without bleeding; Z82.49 Family history of ischemic heart disease and other diseases of the circulatory system; Z90.49 Acquired absence of other specified parts of digestive tract; Z95.1 Presence of aortocoronary bypass graft; Z95.5 Presence of coronary angioplasty implant and graft; Z88.5 Allergy status to narcotic agent; Z91.041 Radiographic dye allergy status
CPT/HCPCS: 36415; 43239; 74177; 80053; 82150; 82948; 83690; 83735; 84132; 85025; 86677; 87177; 87507; 88305; G0378; J1170; J1200; J1815; J1956; J2405; J2704; J3475; J3490; J7030; Q9967

== ENCOUNTER → 2020-05-14 | Outpatient (CLI) | payer OTHER ==
[~2020-05-14] MED LIST changes: +SIMV-46 PO; -SIMV40TA5 PO
== END | disposition home or self-care (01) ==
LOC: SHCH 13:32
PROVIDERS: ATTEND Internal Medicine Cardiovascular Disease
DX: I65.23 Occlusion and stenosis of bilateral carotid arteries (principal)
CPT/HCPCS: 93880

== ENCOUNTER 2020-10-11 18:05 | Emergency (ER) | payer OTHER ==
[~2020-10-11 18:05] MED LIST changes: -ISOS60TA4 PO; +ISOS60TA77 PO
[2020-10-11 18:39] LABS: BASOPHILS % (AUTO) 0.5 % (0.0-5.0); EOSINOPHILS % (AUTO) 1.4 % (0.0-8.0); HEMATOCRIT 36.9 % (36-48); LYMPHOCYTES % (AUTO) 19.9 % (21.0-51.0); MEAN CORPUSCULAR HEMOGLOBIN 28.9 pg (27.0-33.0); MEAN CORPUSCULAR HGB CONC 32.8 g/dL (32.0-36.0); MEAN CORPUSCULAR VOLUME 88.3 fL (79-99); MONOCYTES % (AUTO) 5.7 % (3.0-13.0); PLATELET COUNT (AUTO) 247 K/uL (130-400); RED BLOOD CELL COUNT(AUTO) 4.18 MIL/uL (4.00-5.50); RED CELL DISTRIBUTION WIDTH 13.8 % (11.0-15.5); WHITE BLOOD COUNT (AUTO) 9.7 K/uL (4.8-10.8)
[2020-10-11 18:51] LABS: CREATININE 1.2 mg/dL (0.5-1.5); POTASSIUM 4.2 mmol/L (3.5-5.1)
[2020-10-11 18:54] LABS: INR 0.91 (0.85-1.15)
[2020-10-11 18:55] LABS: PARTIAL THROMBOPLASTIN TIME 28.5 SEC (26.3-35.5)
[2020-10-11 19:00] LABS: ALBUMIN 3.7 g/dL (3.5-5.0); BILIRUBIN,TOTAL 0.5 mg/dL (0.2-1.0); TOTAL PROTEIN, SERUM 7.9 g/dL (6.0-8.3)
== END 2020-10-11 20:17 | disposition home or self-care (01) ==
LOC: EDH 18:05
DX: I16.9 Hypertensive crisis, unspecified (principal); F41.9 Anxiety disorder, unspecified; I25.10 Atherosclerotic heart disease of native coronary artery without angina pectoris; E11.9 Type 2 diabetes mellitus without complications; I10 Essential (primary) hypertension; E78.5 Hyperlipidemia, unspecified; Z90.49 Acquired absence of other specified parts of digestive tract; Z88.5 Allergy status to narcotic agent
CPT/HCPCS: 36415; 71045; 80053; 82550; 84484; 85025; 85610; 85730; 93005

== ENCOUNTER → 2020-11-20 | Outpatient (CLI) | payer OTHER | END | disposition home or self-care (01) | LOC: SHCH 08:01 | PROVIDERS: ATTEND Internal Medicine Cardiovascular Disease | DX: I71.4 Abdominal aortic aneurysm, without rupture (principal); I65.23 Occlusion and stenosis of bilateral carotid arteries; I70.0 Atherosclerosis of aorta; I25.10 Atherosclerotic heart disease of native coronary artery without angina pectoris; I07.1 Rheumatic tricuspid insufficiency; I10 Essential (primary) hypertension; E78.5 Hyperlipidemia, unspecified; E11.9 Type 2 diabetes mellitus without complications | CPT/HCPCS: 93306; 93356; 93880; 93925; 93978 ==

== ENCOUNTER → 2021-05-21 | Outpatient (CLI) | payer OTHER ==
[~2021-05-21] MED LIST changes: +LISI2.5T13 PO; -LISI2.5T2 PO
== END | disposition home or self-care (01) ==
LOC: SHCH 08:41
PROVIDERS: ATTEND Internal Medicine Cardiovascular Disease
DX: I65.23 Occlusion and stenosis of bilateral carotid arteries (principal); I70.293 Other atherosclerosis of native arteries of extremities, bilateral legs; R09.89 Other specified symptoms and signs involving the circulatory and respiratory systems
CPT/HCPCS: 93880; 93925

== ENCOUNTER → 2021-07-15 | Outpatient (CLI) | payer OTHER ==
[~2021-07-15] MED LIST changes: +IOHEXOL 350 MG/ML 100ML INFUS..BTL IV ONE; +IOHEXOL-350 50ML VIAL IV ONE; +IOHEXOL-350 75 ML VIAL IV ONE
== END | disposition home or self-care (01) ==
LOC: RAH 08:56
PROVIDERS: ATTEND Internal Medicine Cardiovascular Disease
DX: I70.203 Unspecified atherosclerosis of native arteries of extremities, bilateral legs (principal); N28.89 Other specified disorders of kidney and ureter
CPT/HCPCS: 75635; Q9967 ×2

== ENCOUNTER → 2022-09-29 | Outpatient (CLI) | payer OTHER ==
[~2022-09-29] MED LIST changes: -CILO100T PO; +CILO100T3 PO; -IOHEXOL-350 50ML VIAL IV ONE; -IOHEXOL-350 75 ML VIAL IV ONE
== END | disposition home or self-care (01) ==
LOC: RAH 08:39
PROVIDERS: ATTEND Internal Medicine Cardiovascular Disease
DX: I65.23 Occlusion and stenosis of bilateral carotid arteries (principal)
CPT/HCPCS: 70498; Q9967

== ENCOUNTER → 2022-10-08 | Outpatient (CLI) | payer OTHER ==
[~2022-10-08] MED LIST changes: -IOHEXOL 350 MG/ML 100ML INFUS..BTL IV ONE
[2022-10-08 12:42] LABS: BASOPHILS % (AUTO) 0.5 % (0.0-5.0); EOSINOPHILS % (AUTO) 2.6 % (0.0-8.0); HEMATOCRIT 37.5 % (36-48); LYMPHOCYTES % (AUTO) 20.3 % (21.0-51.0); MEAN CORPUSCULAR HGB CONC 31.7 g/dL (32.0-36.0); MEAN CORPUSCULAR VOLUME 91.2 fL (79-99); MONOCYTES % (AUTO) 4.8 % (3.0-13.0); NEUTROPHILS % (AUTO) 71.4 % (40.0-77.0); PLATELET COUNT (AUTO) 254 K/uL (130-400); RED BLOOD CELL COUNT(AUTO) 4.11 MIL/uL (4.00-5.50); RED CELL DISTRIBUTION WIDTH 14.6 % (11.0-15.5); WHITE BLOOD COUNT (AUTO) 7.6 K/uL (4.8-10.8)
[2022-10-08 12:48] LABS: INR 0.93 (0.85-1.15); PROTHROMBIN TIME 9.5 SEC (9.6-11.6)
[2022-10-08 12:50] LABS: CREATININE 1.2 mg/dL (0.5-1.5); POTASSIUM 4.6 mmol/L (3.5-5.1)
== END | disposition home or self-care (01) ==
LOC: LAB 08:54
PROVIDERS: ATTEND Internal Medicine Cardiovascular Disease
DX: I11.0 Hypertensive heart disease with heart failure (principal); I50.32 Chronic diastolic (congestive) heart failure; I48.20 Chronic atrial fibrillation, unspecified; I87.2 Venous insufficiency (chronic) (peripheral); I05.2 Rheumatic mitral stenosis with insufficiency; Z79.01 Long term (current) use of anticoagulants; Z79.899 Other long term (current) drug therapy
CPT/HCPCS: 36415; 80048; 85025; 85610; 85730

== ENCOUNTER 2022-12-24 14:58 | Inpatient (IN) | payer OTHER ==
[~2022-12-24] VITALS: Ht 154.9 cm; Wt 67.0 kg
[2022-12-24 15:52] LABS: BASOPHILS % (AUTO) 0.5 % (0.0-5.0); EOSINOPHILS % (AUTO) 1.2 % (0.0-8.0); HEMATOCRIT 25.4 % (36-48); LYMPHOCYTES % (AUTO) 9.9 % (21.0-51.0); MEAN CORPUSCULAR HEMOGLOBIN 28.6 pg (27.0-33.0); MEAN CORPUSCULAR HGB CONC 32.3 g/dL (32.0-36.0); MEAN CORPUSCULAR VOLUME 88.5 fL (79-99); PLATELET COUNT (AUTO) 346 K/uL (130-400); RED BLOOD CELL COUNT(AUTO) 2.87 MIL/uL (4.00-5.50); RED CELL DISTRIBUTION WIDTH 15.2 % (11.0-15.5); WHITE BLOOD COUNT (AUTO) 12.9 K/uL (4.8-10.8)
[2022-12-24 16:05] LABS: CARBON DIOXIDE 24 mmol/L (21-32); CHLORIDE 104 mmol/L (101-111); CREATININE 1.3 mg/dL (0.5-1.5); GLOMERULAR FILTR. RATE CALC 42 mL/min (>90); GLUCOSE,RANDOM 361 mg/dL (70-105); POTASSIUM 5.1 mmol/L (3.5-5.1); SODIUM SERUM 135 mmol/L (136-145); UREA NITROGEN, BLOOD 23 mg/dL (7-18)
[2022-12-24 16:10] LABS: ALANINE AMINOTRANSFERASE 19 U/L (12-78); ALBUMIN 2.9 g/dL (3.5-5.0); ASPARTATE AMINOTRANSFERASE 21 U/L (10-37); TOTAL PROTEIN, SERUM 6.4 g/dL (6.0-8.3)
[2022-12-24 19:16] LABS: APPEARANCE,URINE CLEAR (CLEAR); BILIRUBIN,URINE NEGATIVE (NEGATIVE); COLOR,URINE YELLOW (YELLOW); GLUCOSE, URINE (UA) >=1000 mg/dL (NEGATIVE); KETONES,URINE NEGATIVE (NEGATIVE); LEUKOCYTE ESTERASE ,URINE NEGATIVE Leu/uL (NEGATIVE); NITRATE,URINE NEGATIVE (NEGATIVE); OCCULT BLOOD,URINE NEGATIVE (NEGATIVE); PROTEIN,URINE TRACE mg/dL (NEGATIVE); UROBILINOGEN,URINE 0.2 mg/dL (0.2-1.0)
[2022-12-24 19:26] LABS: BACTERIA,URINE MOD /HPF (None Seen); MUCUS,URINE RARE LPF (None Seen); RBC,URINE 0-1 /HPF (0-1); SQUAMOUS EPITHELIAL CELL,UR FEW /HPF (0-2); YEAST,URINE BUDDING FEW /HPF (None Seen)
[2022-12-24] MEDS ORDERED: HEPARIN 25,000 UNITS/250ML D5W 250 ML IV ONE (21:22)
[2022-12-24] MEDS ORDERED: CEFTRIAXONE 1G VIAL IVPB ONE (21:30)
[2022-12-24] MEDS ORDERED: HEPARIN 25,000 UNITS/250ML D5W 250 ML IV SCH (22:00)
[2022-12-24 22:18] LABS: INR 0.93 (0.85-1.15); PROTHROMBIN TIME 10.1 SEC (9.6-11.6)
[2022-12-24 22:20] LABS: PARTIAL THROMBOPLASTIN TIME 22.7 SEC (26.3-35.5)
[2022-12-24] MEDS ORDERED: METOPROLOL TARTRATE 25 MG TAB PO ONE (22:30)
[2022-12-24] MEDS ORDERED: MORPHINE 2 MG SYG IVP PRN (22:30)
[2022-12-24] MEDS ORDERED: ONDANSETRON 4MG INJ IVP PRN (22:30)
[2022-12-24] MEDS: ACETAMINOPHEN 325 MG TAB PO PRN (23:41)
[2022-12-25] VITALS (7 sets, daily range): BP systolic 108–180; BP diastolic 47–94
[2022-12-25 03:39] LABS: BASOPHILS % (AUTO) 0.5 % (0.0-5.0); EOSINOPHILS % (AUTO) 1.4 % (0.0-8.0); LYMPHOCYTES % (AUTO) 16.6 % (21.0-51.0); MEAN CORPUSCULAR HEMOGLOBIN 28.4 pg (27.0-33.0); MEAN CORPUSCULAR HGB CONC 32.3 g/dL (32.0-36.0); NEUTROPHILS % (AUTO) 74.1 % (40.0-77.0); PLATELET COUNT (AUTO) 308 K/uL (130-400); RED CELL DISTRIBUTION WIDTH 15.3 % (11.0-15.5); WHITE BLOOD COUNT (AUTO) 10.6 K/uL (4.8-10.8)
[2022-12-25 03:47] LABS: CREATININE 1.2 mg/dL (0.5-1.5); MAGNESIUM 1.8 mg/dL (1.80-2.40); POTASSIUM 4.9 mmol/L (3.5-5.1)
[2022-12-25 03:48] LABS: HEMOGLOBIN A1C 8.7 % (4.0-6.0)
[2022-12-25 03:55] LABS: INR 0.93 (0.85-1.15); PROTHROMBIN TIME 10.1 SEC (9.6-11.6)
[2022-12-25 03:56] LABS: PARTIAL THROMBOPLASTIN TIME 37.9 SEC (26.3-35.5)
[2022-12-25] MEDS ORDERED: HEPARIN 5,000 UNIT VIAL IV ONE (04:30)
[2022-12-25] MEDS ORDERED: GLUCAGON 1MG KIT 1 MG ML IM PRN (06:00)
[2022-12-25] MEDS: INSULIN HUMULIN R 100 UNIT/ML 3ML SQ SCH ×3 (06:26→16:30)
[2022-12-25] MEDS ORDERED: INSULIN HUMULIN R 100 UNIT/ML 3ML SQ SCH (07:30)
[2022-12-25] MEDS: ACETAMINOPHEN 325 MG TAB PO PRN (08:34)
[2022-12-25] MEDS ORDERED: HYDRALAZINE 25MG TABLET PO SCH (09:00)
[2022-12-25] MEDS: ASPIRIN 81MG CHEW TAB PO SCH (09:00)
[2022-12-25] MEDS ORDERED: ENOXAPARIN SODIUM 30 MG/0.3 ML SQ SCH (09:00)
[2022-12-25] MEDS: LISINOPRIL 10 MG TABLET PO SCH (09:00)
[2022-12-25] MEDS: FAMOTIDINE 20MG TAB PO SCH (09:34)
[2022-12-25] MEDS: HYDRALAZINE 25MG TABLET PO SCH (09:34)
[2022-12-25] MEDS: ISOSORBIDE MONO 60MG SR TAB PO SCH (09:34)
[2022-12-25 10:18] LABS: HEMATOCRIT 21.6 % (36-48)
[2022-12-25] MEDS ORDERED: CEFTRIAXONE 1G VIAL IVPB SCH (12:30)
[2022-12-25 13:03] LABS: % IRON SATURATION 13.4 % (22-44)
[2022-12-25] MEDS ORDERED: SOLU-MEDROL 40MG VIAL ONE (16:30)
[2022-12-25] MEDS: GLIPIZIDE 5 MG TABLET PO SCH (17:00)
[2022-12-25] MEDS: CILOSTAZOL 100 MG TAB PO SCH ×2 (17:03→21:00)
[2022-12-25] MEDS ORDERED: IOHEXOL 350 MG/ML 100ML INFUS..BTL IV ONE (21:13)
[2022-12-26] MEDS: SIMVASTATIN 20 MG TABLET PO SCH ×2 (00:01→20:24)
[2022-12-26] MEDS: GLIPIZIDE 5 MG TABLET PO SCH ×3 (00:01→20:25)
[2022-12-26] MEDS: FAMOTIDINE 20MG TAB PO SCH ×3 (00:01→20:24)
[2022-12-26] MEDS: HYDRALAZINE 25MG TABLET PO SCH ×3 (00:02→20:23)
[2022-12-26] MEDS: METOPROLOL SUCCINATE 50 MG TAB.SR.24H PO SCH ×2 (00:06→21:00)
[2022-12-26] MEDS: INSULIN HUMULIN R 100 UNIT/ML 3ML SQ SCH ×5 (00:07→20:53)
[2022-12-26] MEDS ORDERED: FUROSEMIDE 20MG VIAL IV ONE (00:30)
[2022-12-26] MEDS: HYDRALAZINE 20MG/ML VIAL IV PRN (02:16)
[2022-12-26] MEDS: ACETAMINOPHEN 325 MG TAB PO PRN (02:16)
[2022-12-26] MEDS ORDERED: NITROGLYCERIN 1GM OINT 1 INCH/1GM TD ONE (02:30)
[2022-12-26 04:00] VITALS: BP 156/47
[2022-12-26] MEDS ORDERED: FUROSEMIDE 20MG VIAL ONE (05:18)
[2022-12-26 05:54] LABS: HEMATOCRIT 31.3 % (36-48); MEAN CORPUSCULAR HEMOGLOBIN 29.1 pg (27.0-33.0); MEAN CORPUSCULAR HGB CONC 33.2 g/dL (32.0-36.0); MEAN CORPUSCULAR VOLUME 87.7 fL (79-99); RED BLOOD CELL COUNT(AUTO) 3.57 MIL/uL (4.00-5.50); WHITE BLOOD COUNT (AUTO) 10.3 K/uL (4.8-10.8)
[2022-12-26 06:06] LABS: CREATININE 1.6 mg/dL (0.5-1.5); MAGNESIUM 1.7 mg/dL (1.80-2.40)
[2022-12-26 07:00] VITALS: BP 152/73
[2022-12-26] MEDS: ISOSORBIDE MONO 60MG SR TAB PO SCH (08:08)
[2022-12-26] MEDS: LISINOPRIL 10 MG TABLET PO SCH (08:08)
[2022-12-26] MEDS: CILOSTAZOL 100 MG TAB PO SCH ×2 (08:09→20:24)
[2022-12-26] MEDS: ASPIRIN 81MG CHEW TAB PO SCH (08:09)
[2022-12-26 11:00] VITALS: BP 139/53
[2022-12-26] MEDS ORDERED: LEVOFLOXACIN 500 MG/D5W 100 ML 100 ML IV SCH (13:00)
[2022-12-26] MEDS ORDERED: LIDOCAINE PF 100MG/5ML (2%) SYRINGE 5ML ONE (13:05)
[2022-12-26] MEDS ORDERED: PROPOFOL 10 MG/ML 20ML VIAL IV ONE (13:05)
[2022-12-26 16:00] VITALS: BP 146/57
[2022-12-26] MEDS ORDERED: CEFTRIAXONE 1G VIAL IVPB SCH (16:00)
[2022-12-26 19:45] VITALS: BP 169/61
[2022-12-27] VITALS (7 sets, daily range): BP systolic 127–177; BP diastolic 44–73
[2022-12-27] MEDS: HYDRALAZINE 20MG/ML VIAL IV PRN (00:21)
[2022-12-27 04:23] LABS: HEMATOCRIT 30.5 % (36-48); MEAN CORPUSCULAR HGB CONC 32.8 g/dL (32.0-36.0); MEAN CORPUSCULAR VOLUME 88.4 fL (79-99); RED BLOOD CELL COUNT(AUTO) 3.45 MIL/uL (4.00-5.50); RED CELL DISTRIBUTION WIDTH 15.6 % (11.0-15.5); WHITE BLOOD COUNT (AUTO) 10.8 K/uL (4.8-10.8)
[2022-12-27 04:28] LABS: CREATININE 1.3 mg/dL (0.5-1.5); MAGNESIUM 1.8 mg/dL (1.80-2.40); POTASSIUM 3.4 mmol/L (3.5-5.1)
[2022-12-27] MEDS ORDERED: POTASSIUM CHLORIDE 10% ELIXIR 20 MEQ/15 ML UDCUP PO PRN (07:30)
[2022-12-27] MEDS ORDERED: POTASSIUM CHLORIDE 20MEQ/100ML 100 ML IV PRN (07:30)
[2022-12-27] MEDS: INSULIN HUMULIN R 100 UNIT/ML 3ML SQ SCH ×4 (07:30→20:31)
[2022-12-27] MEDS: LISINOPRIL 10 MG TABLET PO SCH (09:19)
[2022-12-27] MEDS: GLIPIZIDE 5 MG TABLET PO SCH ×2 (09:20→20:19)
[2022-12-27] MEDS: ASPIRIN 81MG CHEW TAB PO SCH (09:20)
[2022-12-27] MEDS: ISOSORBIDE MONO 60MG SR TAB PO SCH (09:20)
[2022-12-27] MEDS: FAMOTIDINE 20MG TAB PO SCH ×2 (09:21→20:20)
[2022-12-27] MEDS: CILOSTAZOL 100 MG TAB PO SCH ×2 (09:21→20:19)
[2022-12-27] MEDS: HYDRALAZINE 25MG TABLET PO SCH ×2 (09:21→20:20)
[2022-12-27] MEDS: LEVOFLOXACIN 250 MG/D5W 50ML 50 ML IVPB SCH (09:21)
[2022-12-27] MEDS: METOPROLOL SUCCINATE 50 MG TAB.SR.24H PO SCH (20:19)
[2022-12-27] MEDS: SIMVASTATIN 20 MG TABLET PO SCH (20:20)
[2022-12-27] MEDS: KCL 20 MEQ ERTAB PO PRN (23:52)
[2022-12-27] MEDS: MAGNESIUM 2GM PREMIX 50ML 50 ML IV PRN (23:53)
[2022-12-28] VITALS (13 sets, daily range): BP systolic 81–181; BP diastolic 36–65
[2022-12-28] MEDS: KCL 20 MEQ ERTAB PO PRN (01:59)
[2022-12-28 04:31] LABS: HEMATOCRIT 29.5 % (36-48); MEAN CORPUSCULAR HEMOGLOBIN 29.2 pg (27.0-33.0); MEAN CORPUSCULAR HGB CONC 32.9 g/dL (32.0-36.0); MEAN CORPUSCULAR VOLUME 88.9 fL (79-99); RED BLOOD CELL COUNT(AUTO) 3.32 MIL/uL (4.00-5.50); RED CELL DISTRIBUTION WIDTH 15.7 % (11.0-15.5); WHITE BLOOD COUNT (AUTO) 8.7 K/uL (4.8-10.8)
[2022-12-28] MEDS: INSULIN HUMULIN R 100 UNIT/ML 3ML SQ SCH ×4 (06:12→20:23)
[2022-12-28 07:24] LABS: CREATININE 1.5 mg/dL (0.5-1.5); POTASSIUM 4.5 mmol/L (3.5-5.1)
[2022-12-28] MEDS: LEVOFLOXACIN 250 MG/D5W 50ML 50 ML IVPB SCH (07:56)
[2022-12-28] MEDS: ASPIRIN 81MG CHEW TAB PO SCH (07:56)
[2022-12-28] MEDS: LISINOPRIL 10 MG TABLET PO SCH (07:57)
[2022-12-28] MEDS: FAMOTIDINE 20MG TAB PO SCH ×2 (07:57→20:15)
[2022-12-28] MEDS: GLIPIZIDE 5 MG TABLET PO SCH ×3 (07:57→21:00)
[2022-12-28] MEDS: CILOSTAZOL 100 MG TAB PO SCH ×3 (07:57→21:00)
[2022-12-28] MEDS: ISOSORBIDE MONO 60MG SR TAB PO SCH (07:57)
[2022-12-28] MEDS: HYDRALAZINE 25MG TABLET PO SCH ×3 (07:58→21:00)
[2022-12-28] MEDS: SIMVASTATIN 20 MG TABLET PO SCH ×2 (20:15→21:00)
[2022-12-28] MEDS: METOPROLOL SUCCINATE 50 MG TAB.SR.24H PO SCH ×2 (20:15→21:00)
[2022-12-28 21:25] LABS: BASOPHILS % (AUTO) 0.5 % (0.0-5.0); EOSINOPHILS % (AUTO) 2.7 % (0.0-8.0); HEMATOCRIT 27.4 % (36-48); LYMPHOCYTES % (AUTO) 19.7 % (21.0-51.0); MEAN CORPUSCULAR HEMOGLOBIN 29.3 pg (27.0-33.0); MEAN CORPUSCULAR HGB CONC 31.8 g/dL (32.0-36.0); MEAN CORPUSCULAR VOLUME 92.3 fL (79-99); MONOCYTES % (AUTO) 5.3 % (3.0-13.0); NEUTROPHILS % (AUTO) 69.7 % (40.0-77.0); PLATELET COUNT (AUTO) 277 K/uL (130-400); RED BLOOD CELL COUNT(AUTO) 2.97 MIL/uL (4.00-5.50); RED CELL DISTRIBUTION WIDTH 15.8 % (11.0-15.5); WHITE BLOOD COUNT (AUTO) 9.2 K/uL (4.8-10.8)
[2022-12-28 21:38] LABS: CREATININE 1.7 mg/dL (0.5-1.5)
[2022-12-28] MEDS ORDERED: LACTATED RINGERS 1000ML IV SCH (22:00)
[2022-12-28] MEDS: LACTATED RINGERS 1000ML 1,000 ML IV SCH (23:06)
[2022-12-29] VITALS (14 sets, daily range): BP systolic 108–172; BP diastolic 42–71
[2022-12-29 04:27] LABS: HEMATOCRIT 22.6 % (36-48); MEAN CORPUSCULAR HGB CONC 33.2 g/dL (32.0-36.0); MEAN CORPUSCULAR VOLUME 90.4 fL (79-99); RED BLOOD CELL COUNT(AUTO) 2.5 MIL/uL (4.00-5.50); RED CELL DISTRIBUTION WIDTH 15.7 % (11.0-15.5); WHITE BLOOD COUNT (AUTO) 12.2 K/uL (4.8-10.8)
[2022-12-29 04:40] LABS: CREATININE 1.7 mg/dL (0.5-1.5); MAGNESIUM 2.1 mg/dL (1.80-2.40); POTASSIUM 4.9 mmol/L (3.5-5.1)
[2022-12-29] MEDS: INSULIN HUMULIN R 100 UNIT/ML 3ML SQ SCH ×4 (07:30→20:37)
[2022-12-29 07:54] LABS: HEMATOCRIT 22.8 % (36-48)
[2022-12-29] MEDS: HYDRALAZINE 25MG TABLET PO SCH ×2 (09:14→20:35)
[2022-12-29] MEDS: ISOSORBIDE MONO 60MG SR TAB PO SCH (09:14)
[2022-12-29] MEDS: FAMOTIDINE 20MG TAB PO SCH ×2 (09:15→20:35)
[2022-12-29] MEDS: ASPIRIN 81MG CHEW TAB PO SCH (09:15)
[2022-12-29] MEDS: LISINOPRIL 10 MG TABLET PO SCH (09:15)
[2022-12-29] MEDS: CILOSTAZOL 100 MG TAB PO SCH ×2 (09:15→20:34)
[2022-12-29] MEDS: LEVOFLOXACIN 250 MG/D5W 50ML 50 ML IVPB SCH (09:16)
[2022-12-29] MEDS: GLIPIZIDE 5 MG TABLET PO SCH ×2 (09:16→20:35)
[2022-12-29 12:09] LABS: HEMATOCRIT 22.3 % (36-48)
[2022-12-29] MEDS: LACTATED RINGERS 1000ML 1,000 ML IV SCH (13:29)
[2022-12-29] MEDS: METOPROLOL SUCCINATE 50 MG TAB.SR.24H PO SCH (20:32)
[2022-12-29] MEDS: SIMVASTATIN 20 MG TABLET PO SCH (20:32)
[2022-12-30] VITALS (18 sets, daily range): BP systolic 100–189; BP diastolic 42–69
[2022-12-30] MEDS: LACTATED RINGERS 1000ML 1,000 ML IV SCH ×3 (00:45→22:43)
[2022-12-30 02:17] LABS: HEMATOCRIT 34.4 % (36-48); MEAN CORPUSCULAR HEMOGLOBIN 27.1 pg (27.0-33.0); MEAN CORPUSCULAR HGB CONC 33.1 g/dL (32.0-36.0); MEAN CORPUSCULAR VOLUME 81.7 fL (79-99); PLATELET COUNT (AUTO) 165 K/uL (130-400); RED BLOOD CELL COUNT(AUTO) 4.21 MIL/uL (4.00-5.50); RED CELL DISTRIBUTION WIDTH 19.1 % (11.0-15.5); WHITE BLOOD COUNT (AUTO) 10.9 K/uL (4.8-10.8)
[2022-12-30 02:27] LABS: CREATININE 1.4 mg/dL (0.5-1.5); MAGNESIUM 1.9 mg/dL (1.80-2.40); POTASSIUM 4.9 mmol/L (3.5-5.1)
[2022-12-30] MEDS: MAGNESIUM 2GM PREMIX 50ML 50 ML IV PRN (05:02)
[2022-12-30] MEDS: INSULIN HUMULIN R 100 UNIT/ML 3ML SQ SCH ×4 (05:38→20:11)
[2022-12-30] MEDS: ISOSORBIDE MONO 60MG SR TAB PO SCH (08:06)
[2022-12-30] MEDS: LISINOPRIL 10 MG TABLET PO SCH (08:07)
[2022-12-30] MEDS: HYDRALAZINE 25MG TABLET PO SCH ×2 (08:07→21:00)
[2022-12-30] MEDS: FAMOTIDINE 20MG TAB PO SCH ×2 (08:07→20:14)
[2022-12-30] MEDS: GLIPIZIDE 5 MG TABLET PO SCH ×2 (08:07→20:12)
[2022-12-30] MEDS: LEVOFLOXACIN 250 MG/D5W 50ML 50 ML IVPB SCH (08:08)
[2022-12-30] MEDS: ASPIRIN 81MG CHEW TAB PO SCH (08:08)
[2022-12-30] MEDS: CILOSTAZOL 100 MG TAB PO SCH ×2 (08:17→20:12)
[2022-12-30 08:53] LABS: HEMATOCRIT 37.7 % (36-48)
[2022-12-30] MEDS ORDERED: LIDOCAINE HCL 1% 20 ML VIAL ONE (14:47)
[2022-12-30] MEDS ORDERED: IODIXANOL 320 MG/ML 100 ML VIAL ONE ×2 (14:47→15:11)
[2022-12-30] MEDS ORDERED: MIDAZOLAM HCL 1 MG/ML 2ML VIAL ONE (14:47)
[2022-12-30] MEDS ORDERED: HEPARIN 10,000 UNIT/10ML (1,000 UNIT/ML) VIAL ONE (14:47)
[2022-12-30] MEDS ORDERED: SOLU-MEDROL 125MG VIAL ONE (15:07)
[2022-12-30] MEDS ORDERED: DiphenhydrAMINE HCL 50 MG/ML VIAL ONE (15:07)
[2022-12-30] MEDS ORDERED: PHENYLEPHRINE HCL 10 MG/ML 1ML VIAL IV ONE (15:47)
[2022-12-30] MEDS ORDERED: PHENYLEPHRINE HCL 10 MG/ML 5ML VIAL IV ONE (15:49)
[2022-12-30 16:27] LABS: HEMATOCRIT 33.3 % (36-48); MEAN CORPUSCULAR HEMOGLOBIN 27.5 pg (27.0-33.0); MEAN CORPUSCULAR HGB CONC 31.8 g/dL (32.0-36.0); MEAN CORPUSCULAR VOLUME 86.3 fL (79-99); RED BLOOD CELL COUNT(AUTO) 3.86 MIL/uL (4.00-5.50); RED CELL DISTRIBUTION WIDTH 20.1 % (11.0-15.5); WHITE BLOOD COUNT (AUTO) 14.1 K/uL (4.8-10.8)
[2022-12-30] MEDS: ACETAMINOPHEN 325 MG TAB PO PRN (17:55)
[2022-12-30] MEDS ORDERED: MORPHINE 2 MG SYG IVP PRN (18:30)
[2022-12-30] MEDS: SIMVASTATIN 20 MG TABLET PO SCH (20:12)
[2022-12-30] MEDS: METOPROLOL SUCCINATE 50 MG TAB.SR.24H PO SCH (20:12)
[2022-12-30 22:30] LABS: HEMATOCRIT 29.8 % (36-48)
[2022-12-31 02:54] VITALS: BP_SYST 119; BP_SYST 130; BP_DIAS 47; BP_DIAS 78
[2022-12-31 04:16] LABS: MEAN CORPUSCULAR HEMOGLOBIN 27.1 pg (27.0-33.0); MEAN CORPUSCULAR HGB CONC 32.9 g/dL (32.0-36.0); MEAN CORPUSCULAR VOLUME 82.6 fL (79-99); RED BLOOD CELL COUNT(AUTO) 3.39 MIL/uL (4.00-5.50); RED CELL DISTRIBUTION WIDTH 19.7 % (11.0-15.5); WHITE BLOOD COUNT (AUTO) 11.1 K/uL (4.8-10.8)
[2022-12-31 04:33] LABS: CREATININE 1.7 mg/dL (0.5-1.5); MAGNESIUM 2.1 mg/dL (1.80-2.40); POTASSIUM 4.7 mmol/L (3.5-5.1)
[2022-12-31] MEDS: INSULIN HUMULIN R 100 UNIT/ML 3ML SQ SCH ×4 (06:20→20:52)
[2022-12-31 07:16] VITALS: BP 149/76
[2022-12-31] MEDS: HYDRALAZINE 25MG TABLET PO SCH ×2 (09:20→20:49)
[2022-12-31] MEDS: FAMOTIDINE 20MG TAB PO SCH ×2 (09:20→20:50)
[2022-12-31] MEDS: LISINOPRIL 10 MG TABLET PO SCH (09:21)
[2022-12-31] MEDS: CILOSTAZOL 100 MG TAB PO SCH ×3 (09:21→21:00)
[2022-12-31] MEDS: GLIPIZIDE 5 MG TABLET PO SCH ×2 (09:22→20:50)
[2022-12-31] MEDS: ASPIRIN 81MG CHEW TAB PO SCH (09:22)
[2022-12-31] MEDS: LEVOFLOXACIN 250 MG/D5W 50ML 50 ML IVPB SCH (09:23)
[2022-12-31] MEDS: ISOSORBIDE MONO 60MG SR TAB PO SCH (09:23)
[2022-12-31 11:23] VITALS: BP 134/49
[2022-12-31] MEDS: LACTATED RINGERS 1000ML 1,000 ML IV SCH (12:41)
[2022-12-31 16:07] VITALS: BP 139/46
[2022-12-31] MEDS ORDERED: LOPERAMIDE HCL 2 MG CAP PO ONE (17:30)
[2022-12-31 19:52] VITALS: BP 155/48
[2022-12-31] MEDS: SIMVASTATIN 20 MG TABLET PO SCH (20:50)
[2022-12-31] MEDS: METOPROLOL SUCCINATE 50 MG TAB.SR.24H PO SCH (20:50)
[2023-01-01] VITALS: BP 134/56
[2023-01-01] MEDS: LACTATED RINGERS 1000ML 1,000 ML IV SCH (02:02)
[2023-01-01 04:00] VITALS: BP 124/52
[2023-01-01 04:12] LABS: HEMATOCRIT 24.8 % (36-48); MEAN CORPUSCULAR HEMOGLOBIN 27.2 pg (27.0-33.0); MEAN CORPUSCULAR HGB CONC 32.7 g/dL (32.0-36.0); MEAN CORPUSCULAR VOLUME 83.2 fL (79-99); RED BLOOD CELL COUNT(AUTO) 2.98 MIL/uL (4.00-5.50); RED CELL DISTRIBUTION WIDTH 19.4 % (11.0-15.5); WHITE BLOOD COUNT (AUTO) 17.4 K/uL (4.8-10.8)
[2023-01-01 04:21] LABS: CREATININE 1.6 mg/dL (0.5-1.5); MAGNESIUM 2.1 mg/dL (1.80-2.40); POTASSIUM 3.8 mmol/L (3.5-5.1)
[2023-01-01] MEDS: DEXTROSE 50%-WATER 50 ML DISP.SYRIN IV PRN (05:21)
[2023-01-01] MEDS: INSULIN HUMULIN R 100 UNIT/ML 3ML SQ SCH ×4 (05:39→21:09)
[2023-01-01 08:00] VITALS: BP 127/56
[2023-01-01] MEDS: FAMOTIDINE 20MG TAB PO SCH ×2 (09:56→21:10)
[2023-01-01] MEDS: ASPIRIN 81MG CHEW TAB PO SCH (09:56)
[2023-01-01] MEDS: CILOSTAZOL 100 MG TAB PO SCH (09:56)
[2023-01-01] MEDS: ISOSORBIDE MONO 60MG SR TAB PO SCH (09:56)
[2023-01-01] MEDS: GLIPIZIDE 5 MG TABLET PO SCH ×2 (09:57→21:10)
[2023-01-01] MEDS: LEVOFLOXACIN 250 MG/D5W 50ML 50 ML IVPB SCH (09:58)
[2023-01-01] MEDS: LISINOPRIL 10 MG TABLET PO SCH (09:58)
[2023-01-01] MEDS: HYDRALAZINE 25MG TABLET PO SCH ×2 (09:58→21:10)
[2023-01-01 12:00] VITALS: BP 105/43
[2023-01-01 16:00] VITALS: BP 106/43
[2023-01-01 20:20] VITALS: BP 136/53
[2023-01-01] MEDS: SIMVASTATIN 20 MG TABLET PO SCH (21:10)
[2023-01-01] MEDS: METOPROLOL SUCCINATE 50 MG TAB.SR.24H PO SCH (21:11)
[2023-01-02] VITALS (14 sets, daily range): BP systolic 125–164; BP diastolic 40–65
[2023-01-02 04:10] LABS: HEMATOCRIT 23.4 % (36-48); MEAN CORPUSCULAR HEMOGLOBIN 27.7 pg (27.0-33.0); MEAN CORPUSCULAR HGB CONC 32.5 g/dL (32.0-36.0); MEAN CORPUSCULAR VOLUME 85.4 fL (79-99); RED BLOOD CELL COUNT(AUTO) 2.74 MIL/uL (4.00-5.50); RED CELL DISTRIBUTION WIDTH 19.2 % (11.0-15.5); WHITE BLOOD COUNT (AUTO) 10.9 K/uL (4.8-10.8)
[2023-01-02 04:56] LABS: CREATININE 1.4 mg/dL (0.5-1.5); POTASSIUM 4.1 mmol/L (3.5-5.1)
[2023-01-02] MEDS: INSULIN HUMULIN R 100 UNIT/ML 3ML SQ SCH ×4 (05:14→20:39)
[2023-01-02] MEDS: DEXTROSE 50%-WATER 50 ML DISP.SYRIN IV PRN (05:18)
[2023-01-02] MEDS: LISINOPRIL 10 MG TABLET PO SCH (09:44)
[2023-01-02] MEDS: LEVOFLOXACIN 250 MG/D5W 50ML 50 ML IVPB SCH (09:44)
[2023-01-02] MEDS: FAMOTIDINE 20MG TAB PO SCH ×2 (09:44→20:45)
[2023-01-02] MEDS: GLIPIZIDE 5 MG TABLET PO SCH ×2 (09:44→20:45)
[2023-01-02] MEDS: HYDRALAZINE 25MG TABLET PO SCH ×2 (09:45→20:44)
[2023-01-02] MEDS: ISOSORBIDE MONO 60MG SR TAB PO SCH (09:45)
[2023-01-02] MEDS ORDERED: LIDOCAINE HCL 1% MDV 50ML VIAL ONE (16:43)
[2023-01-02] MEDS ORDERED: MIDAZOLAM HCL 1 MG/ML 2ML VIAL ONE (16:44)
[2023-01-02] MEDS ORDERED: IODIXANOL 320 MG/ML 100 ML VIAL ONE (16:44)
[2023-01-02] MEDS ORDERED: FENTANYL CITRATE PF 50 MCG/1 ML 2ML VIAL ONE (16:44)
[2023-01-02] MEDS ORDERED: SOLU-MEDROL 125MG VIAL ONE (16:54)
[2023-01-02] MEDS ORDERED: HYDRALAZINE 20MG/ML VIAL ONE (17:38)
[2023-01-02] MEDS ORDERED: NITROGLYCERIN 50MG VIAL ONE (17:52)
[2023-01-02] MEDS: METOPROLOL SUCCINATE 50 MG TAB.SR.24H PO SCH (20:39)
[2023-01-02] MEDS: SIMVASTATIN 20 MG TABLET PO SCH (20:44)
[2023-01-02] MEDS: TRAMADOL HCL 50 MG TABLET PO PRN (20:44)
[2023-01-03] VITALS (8 sets, daily range): BP systolic 143–190; BP diastolic 54–94
[2023-01-03] MEDS: HYDRALAZINE 20MG/ML VIAL IV PRN (02:53)
[2023-01-03] MEDS: METOPROLOL SUCCINATE 50 MG TAB.SR.24H PO SCH (03:38)
[2023-01-03] MEDS: INSULIN HUMULIN R 100 UNIT/ML 3ML SQ SCH ×4 (06:36→21:28)
[2023-01-03 07:05] LABS: HEMATOCRIT 36.2 % (36-48); MEAN CORPUSCULAR HGB CONC 32.6 g/dL (32.0-36.0); MEAN CORPUSCULAR VOLUME 82.8 fL (79-99); RED BLOOD CELL COUNT(AUTO) 4.37 MIL/uL (4.00-5.50); RED CELL DISTRIBUTION WIDTH 18.5 % (11.0-15.5); WHITE BLOOD COUNT (AUTO) 14.2 K/uL (4.8-10.8)
[2023-01-03 07:24] LABS: CREATININE 1.4 mg/dL (0.5-1.5); POTASSIUM 4.8 mmol/L (3.5-5.1)
[2023-01-03] MEDS: HYDRALAZINE 25MG TABLET PO SCH ×2 (09:43→21:27)
[2023-01-03] MEDS: FAMOTIDINE 20MG TAB PO SCH ×2 (09:43→21:26)
[2023-01-03] MEDS: ISOSORBIDE MONO 60MG SR TAB PO SCH (09:43)
[2023-01-03] MEDS: LISINOPRIL 10 MG TABLET PO SCH (09:44)
[2023-01-03] MEDS: LEVOFLOXACIN 250 MG/D5W 50ML 50 ML IVPB SCH (09:44)
[2023-01-03] MEDS: GLIPIZIDE 5 MG TABLET PO SCH ×2 (09:44→21:26)
[2023-01-03] MEDS ORDERED: LISINOPRIL 10 MG TABLET PO ONE (16:00)
[2023-01-03] MEDS: SIMVASTATIN 20 MG TABLET PO SCH (21:26)
[2023-01-04] VITALS (7 sets, daily range): BP systolic 134–179; BP diastolic 48–69
[2023-01-04 03:58] LABS: HEMATOCRIT 38.8 % (36-48); MEAN CORPUSCULAR HEMOGLOBIN 27.1 pg (27.0-33.0); MEAN CORPUSCULAR HGB CONC 32.2 g/dL (32.0-36.0); MEAN CORPUSCULAR VOLUME 84.2 fL (79-99); RED BLOOD CELL COUNT(AUTO) 4.61 MIL/uL (4.00-5.50); RED CELL DISTRIBUTION WIDTH 18.8 % (11.0-15.5); WHITE BLOOD COUNT (AUTO) 18.6 K/uL (4.8-10.8)
[2023-01-04 04:05] LABS: CREATININE 1.5 mg/dL (0.5-1.5); MAGNESIUM 1.8 mg/dL (1.80-2.40); POTASSIUM 3.5 mmol/L (3.5-5.1)
[2023-01-04] MEDS: DEXTROSE 50%-WATER 50 ML DISP.SYRIN IV PRN (05:44)
[2023-01-04] MEDS: INSULIN HUMULIN R 100 UNIT/ML 3ML SQ SCH ×4 (06:04→20:11)
[2023-01-04] MEDS: ISOSORBIDE MONO 60MG SR TAB PO SCH (10:09)
[2023-01-04] MEDS: TRAMADOL HCL 50 MG TABLET PO PRN (10:09)
[2023-01-04] MEDS: FAMOTIDINE 20MG TAB PO SCH ×2 (10:10→20:09)
[2023-01-04] MEDS: LISINOPRIL 10 MG TABLET PO SCH (10:10)
[2023-01-04] MEDS: GLIPIZIDE 5 MG TABLET PO SCH ×2 (10:10→20:10)
[2023-01-04] MEDS: KCL 20 MEQ ERTAB PO PRN ×2 (10:10→13:35)
[2023-01-04] MEDS: HYDRALAZINE 25MG TABLET PO SCH ×2 (10:11→20:10)
[2023-01-04] MEDS: LEVOFLOXACIN 250 MG/D5W 50ML 50 ML IVPB SCH (10:11)
[2023-01-04] MEDS: ACETAMINOPHEN 325 MG TAB PO PRN ×2 (13:34→21:43)
[2023-01-04] MEDS: MAGNESIUM 2GM PREMIX 50ML 50 ML IV PRN (13:35)
[2023-01-04] MEDS: SIMVASTATIN 20 MG TABLET PO SCH (20:09)
[2023-01-04] MEDS: METOPROLOL SUCCINATE 50 MG TAB.SR.24H PO SCH (20:09)
[2023-01-05 00:24] VITALS: BP 120/48
[2023-01-05 03:52] LABS: HEMATOCRIT 34.7 % (36-48); MEAN CORPUSCULAR HEMOGLOBIN 27.6 pg (27.0-33.0); MEAN CORPUSCULAR HGB CONC 32.6 g/dL (32.0-36.0); MEAN CORPUSCULAR VOLUME 84.8 fL (79-99); RED BLOOD CELL COUNT(AUTO) 4.09 MIL/uL (4.00-5.50); RED CELL DISTRIBUTION WIDTH 18.8 % (11.0-15.5); WHITE BLOOD COUNT (AUTO) 15.8 K/uL (4.8-10.8)
[2023-01-05 04:00] VITALS: BP 115/72
[2023-01-05 04:20] VITALS: BP 187/57
[2023-01-05 04:54] LABS: CREATININE 1.5 mg/dL (0.5-1.5); MAGNESIUM 2.4 mg/dL (1.80-2.40); POTASSIUM 5.1 mmol/L (3.5-5.1)
[2023-01-05] MEDS: HYDRALAZINE 20MG/ML VIAL IV PRN (05:01)
[2023-01-05 05:21] VITALS: BP 158/43
[2023-01-05] MEDS: INSULIN HUMULIN R 100 UNIT/ML 3ML SQ SCH ×2 (05:57→11:46)
[2023-01-05 08:00] VITALS: BP 162/60
[2023-01-05] MEDS: LEVOFLOXACIN 250 MG/D5W 50ML 50 ML IVPB SCH (09:59)
[2023-01-05] MEDS: ISOSORBIDE MONO 60MG SR TAB PO SCH (10:00)
[2023-01-05] MEDS: HYDRALAZINE 25MG TABLET PO SCH (10:00)
[2023-01-05] MEDS: FAMOTIDINE 20MG TAB PO SCH (10:00)
[2023-01-05] MEDS: LISINOPRIL 10 MG TABLET PO SCH (10:00)
[2023-01-05] MEDS: GLIPIZIDE 5 MG TABLET PO SCH (10:01)
[2023-01-05 11:00] VITALS: BP 162/52
[2023-01-05 12:27] LABS: CHOLESTEROL 148 mg/dL (<200); HDL CHOLESTEROL 51 mg/dL (35-85); LDL DIRECT 71 mg/dL (0-99); TRIGLYCERIDES 131 mg/dL (30-200)
== END 2023-01-05 16:40 | disposition home or self-care (01) | DRG 673 ==
LOC: EDH 14:58 → EDHIP 21:32 → 2AH 12-25 01:48 → 4AH 01-05 04:20
PROVIDERS: ADMIT Internal Medicine Infectious Disease; ATTEND Internal Medicine Infectious Disease
PROC: 30233N1 Transfusion of Nonautologous Red Blood Cells into Peripheral Vein, Percutaneous Approach (ICD-10-PCS; principal; 2022-12-25)
PROC: 04LA3DZ Occlusion of Left Renal Artery with Intraluminal Device, Percutaneous Approach (ICD-10-PCS; 2022-12-30)
PROC: B4171ZZ Fluoroscopy of Left Renal Artery using Low Osmolar Contrast (ICD-10-PCS; 2022-12-30)
PROC: 04LA3DZ Occlusion of Left Renal Artery with Intraluminal Device, Percutaneous Approach (ICD-10-PCS; 2023-01-02)
PROC: B4171ZZ Fluoroscopy of Left Renal Artery using Low Osmolar Contrast (ICD-10-PCS; 2023-01-02)
DX: I72.2 Aneurysm of renal artery (principal); K66.1 Hemoperitoneum; D62 Acute posthemorrhagic anemia; N39.0 Urinary tract infection, site not specified; I25.110 Atherosclerotic heart disease of native coronary artery with unstable angina pectoris; Z16.24 Resistance to multiple antibiotics; I24.8 Other forms of acute ischemic heart disease; S37.012A Minor contusion of left kidney, initial encounter; Z20.822 Contact with and (suspected) exposure to COVID-19; B96.20 Unspecified Escherichia coli [E. coli] as the cause of diseases classified elsewhere; S30.1XXA Contusion of abdominal wall, initial encounter; E11.51 Type 2 diabetes mellitus with diabetic peripheral angiopathy without gangrene; E66.09 Other obesity due to excess calories; E78.00 Pure hypercholesterolemia, unspecified; I10 Essential (primary) hypertension; X58.XXXA Exposure to other specified factors, initial encounter; I25.5 Ischemic cardiomyopathy; Z74.01 Bed confinement status; Z79.02 Long term (current) use of antithrombotics/antiplatelets; Z79.82 Long term (current) use of aspirin; I25.2 Old myocardial infarction; Z79.84 Long term (current) use of oral hypoglycemic drugs; Z79.899 Other long term (current) drug therapy; Z82.3 Family history of stroke; Z82.49 Family history of ischemic heart disease and other diseases of the circulatory system; Z83.3 Family history of diabetes mellitus; Z85.528 Personal history of other malignant neoplasm of kidney; Z86.73 Personal history of transient ischemic attack (TIA), and cerebral infarction without residual deficits; Z90.5 Acquired absence of kidney; Z95.1 Presence of aortocoronary bypass graft; Z98.61 Coronary angioplasty status; Y93.89 Activity, other specified; Y92.89 Other specified places as the place of occurrence of the external cause; Y99.8 Other external cause status; Z68.27 Body mass index [BMI] 27.0-27.9, adult
CPT/HCPCS: 36251; 36253; 36415; 36430; 37244; 74176; 74178; 80048; 80053; 80061; 81001; 82270; 82306; 82550; 82948; 83036; 83540; 83550; 83735; 83874; 83880; 84484; 85014; 85018; 85025; 85027; 85610; 85730; 86850; 86900; 86901; 86923; 87077; 87088; 87186; 87635; 93005; 99156; 99157; C1769; C1894; G0378; J0360; J0696; J1200; J1644; J1815; J1940; J1956; J2001; J2250; J2370; J2704; J2920; J2930; J3010; J3475; J3490; J7070; P9016; Q9967

== ENCOUNTER → 2023-02-13 | Outpatient (CLI) | payer OTHER ==
[2023-02-13 12:20] LABS: BASOPHILS % (AUTO) 0.9 % (0.0-5.0); EOSINOPHILS % (AUTO) 3.5 % (0.0-8.0); HEMATOCRIT 38.3 % (36-48); LYMPHOCYTES % (AUTO) 18.1 % (21.0-51.0); MEAN CORPUSCULAR HEMOGLOBIN 27.6 pg (27.0-33.0); MEAN CORPUSCULAR HGB CONC 32.1 g/dL (32.0-36.0); MEAN CORPUSCULAR VOLUME 85.9 fL (79-99); MONOCYTES % (AUTO) 7.9 % (3.0-13.0); NEUTROPHILS % (AUTO) 68.7 % (40.0-77.0); PLATELET COUNT (AUTO) 197 K/uL (130-400); RED BLOOD CELL COUNT(AUTO) 4.46 MIL/uL (4.00-5.50); WHITE BLOOD COUNT (AUTO) 7.7 K/uL (4.8-10.8)
[2023-02-13 12:48] LABS: % IRON SATURATION 51.5 % (22-44)
[2023-02-13 12:49] LABS: ALBUMIN 3.3 g/dL (3.5-5.0); CREATININE 1.4 mg/dL (0.5-1.5); POTASSIUM 4.3 mmol/L (3.5-5.1)
== END | disposition home or self-care (01) ==
LOC: LAB 08:57
PROVIDERS: ATTEND Internal Medicine Cardiovascular Disease
DX: I10 Essential (primary) hypertension (principal); E78.5 Hyperlipidemia, unspecified; D64.9 Anemia, unspecified; I25.10 Atherosclerotic heart disease of native coronary artery without angina pectoris; Z95.1 Presence of aortocoronary bypass graft; Z79.899 Other long term (current) drug therapy
CPT/HCPCS: 36415; 80053; 83540; 83550; 83880; 85025

== ENCOUNTER → 2023-02-27 | Outpatient (CLI) | payer OTHER | END | disposition home or self-care (01) | LOC: SHCH 07:48 | PROVIDERS: ATTEND Internal Medicine Cardiovascular Disease | DX: I87.2 Venous insufficiency (chronic) (peripheral) (principal); R60.9 Edema, unspecified; I10 Essential (primary) hypertension; E11.9 Type 2 diabetes mellitus without complications; E78.5 Hyperlipidemia, unspecified; Z95.1 Presence of aortocoronary bypass graft | CPT/HCPCS: 93306; 93970 ==

== ENCOUNTER → 2024-03-08 | Outpatient (CLI) | payer OTHER ==
[~2024-03-08] MED LIST changes: -HYDR-4154 PO; +HYDR50TA37 PO
[2024-03-08] MEDS: REGADENOSON 0.4 MG/5 ML PF SYG IVP ONE (15:49)
== END | disposition home or self-care (01) ==
LOC: SHCH 07:52
PROVIDERS: ATTEND Internal Medicine Cardiovascular Disease
DX: I25.10 Atherosclerotic heart disease of native coronary artery without angina pectoris (principal)
CPT/HCPCS: 78452; 96374; 93017; J2785; A9500 ×2